=== PATIENT | male | born 1965 | race Caucasian/White ===

== ENCOUNTER 2018-06-02 15:26 | Outpatient (CLI) | payer OTHER, BC ==
--- NOTE | 2018-06-02 16:57 | RAD ---
TWO VIEWS OF THE CHEST: 06/02/18 COMPARISON: None. HISTORY: Chest cold and cough for four months. FINDINGS: Single view of the chest shows a normal sized cardiomediastinal silhouette. There is no evidence of c onsolidation, mass, or pleural effusion. The bones are unremarkable. IMPRESSION: No evidence of acute cardiopulmonary disease. POS: [facility]
== END 2018-06-02 15:27 | disposition home or self-care (01) ==
LOC: SCSRAD 15:26
PROVIDERS: ATTEND Family Medicine
DX: R05 Cough (principal)
CPT/HCPCS: 71046

== ENCOUNTER 2020-03-28 11:12 | Outpatient (CLI) | payer OTHER, BC ==
--- NOTE | 2020-03-28 12:00 | ULT ---
EXAM: Left lower extremity venous Doppler HISTORY: Left lower leg pain after injury one week ago. History of left knee replacement one year ago. FINDINGS: Grayscale, color-flow, Doppler evaluation, spectral analysis of the left lower extremity venous struc tures is performed with 2-D imaging. The left common femoral, superficial femoral, popliteal, posterior tibial, proximal greater saphenous and profunda femoral veins are imaged. There is normal luminal compressibility, flow, and augmentation in the visualized deep venous structu res of the left lower extremity. Mildly prominent lymph node is seen in the left inguinal region which measures 1.1 cm in short axis d imension. IMPRESSION: 1. No evidence of a deep vein thrombosis in the visualized deep venous structures left lower extremit y. 2. Nonspecific prominence of a left inguinal lymph node.
== END 2020-03-28 11:13 | disposition home or self-care (01) ==
LOC: SCSULT 11:12
PROVIDERS: ATTEND Family Medicine
DX: M79.605 Pain in left leg (principal)

== ENCOUNTER 2020-08-14 10:21 | Outpatient (CLI) | payer OTHER, BC | END 2020-08-14 10:22 | disposition home or self-care (01) | LOC: DTY/OP 10:21 | PROVIDERS: ATTEND Family Medicine | DX: R73.03 Prediabetes (principal) | CPT/HCPCS: 97802 ==